=== PATIENT | female | born 1990 | race African-American/Black ===

== ENCOUNTER 2020-03-10 09:03 | Emergency (ER) | payer SELFPAY ==
[~2020-03-10] VITALS: Ht 175.3 cm; Wt 68.5 kg
--- NOTE | 2020-03-10 09:19 | NUR ---
PT JESSICA. [id number]. SEEN AND EVAL BY . AWAITING ORDER
[2020-03-10 09:21] VITALS: BP 126/89
--- NOTE | 2020-03-10 09:26 | NUR ---
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
[2020-03-10] MEDS ORDERED: KETOROLAC TROMETHAMINE 15 MG/ML VIAL ONE ×2 (09:56)
[2020-03-10] MEDS ORDERED: KETOROLAC TROMETHAMINE INJ 30 MG/ML VIAL IM ONE (10:00)
== END 2020-03-10 10:51 | disposition home or self-care (01) ==
LOC: ER 09:09
DX: S92.511A Displaced fracture of proximal phalanx of right lesser toe(s), initial encounter for closed fracture (principal); Z88.6 Allergy status to analgesic agent; W23.0XXA Caught, crushed, jammed, or pinched between moving objects, initial encounter; Y93.89 Activity, other specified; Y92.89 Other specified places as the place of occurrence of the external cause; Y99.8 Other external cause status
CPT/HCPCS: 73660; 96372; 99283; J1885 ×2